=== PATIENT | male | born 2000 | race Hispanic/Latino ===

== ENCOUNTER 2022-05-15 16:08 | Emergency (ER) | payer OTHER ==
[~2022-05-15] VITALS: Ht 170.2 cm; Wt 92.7 kg
[2022-05-15] MEDS ORDERED: predniSONE 20 MG TAB PO ONE (21:25)
[2022-05-15] MEDS ORDERED: MEDR4PAK PO (23:09)
[2022-05-15] MEDS ORDERED: CYCL5TAB PO (23:10)
[2022-05-15 23:42] VITALS: BP 115/62
== END 2022-05-15 23:43 | disposition home or self-care (01) ==
LOC: M ED 22:05
DX: M54.59 Other low back pain (principal); Z87.39 Personal history of other diseases of the musculoskeletal system and connective tissue
CPT/HCPCS: 72072; 72110; 73521; 99284; J7512